=== PATIENT | female | born 1940 | race Caucasian/White ===

== ENCOUNTER 2016-12-06 13:58 | Emergency (ER) | payer MEDICARE ==
[2016-12-06 14:56] LABS: #Eosinphils 0.3 thou/uL (0.0-0.7); #Lymphocytes 2.4 thou/uL (1.20-3.40); #Monocytes 0.5 thou/uL (0.11-0.59); #Neutrophils 4.5 thou/uL (1.40-6.50); %Basophils 0.6 % (0.0-1.0); %Eosinophils 3.6 % (0.0-10.0); %Monocytes 6.4 % (0.0-10.0); Hematocrit 33.4 % (36.0-47.0); Mean Platelet Volume 8.2 fL (7.4-10.4); Red Blood Cell (RBC) Count 3.68 mill/uL (4.20-5.40); White Blood Cell (WBC) Count 7.8 thou/uL (4.8-10.8)
[2016-12-06 15:08] LABS: ALT (SGPT) 13 U/L (8-55); AST (SGOT) 17 U/L (5-34); Alkaline Phosphatase 64 U/L (40-150); Anion Gap 15 mmol/L (10-20); BUN (Urea Nitrogen) 24 mg/dL (9.8-20.1); Bilirubin, Total 1.4 mg/dL (0.2-1.2); Calc. Creatinine Clearance 0 mL/min (70-130); Calcium 9.3 mg/dL (7.8-10.44); Carbon Dioxide 26 mmol/L (23-31); Chloride 104 mmol/L (98-107); Estimated GFR-MDRD 50; Globulin 2.9 g/dL (2.4-3.5); Protein, Total 6.7 g/dL (6.0-8.3)
== END 2016-12-06 16:15 | disposition home or self-care (01) ==
LOC: SCSER 13:58
DX: K64.4 Residual hemorrhoidal skin tags (principal); G30.9 Alzheimer's disease, unspecified; F02.80 Dementia in other diseases classified elsewhere, unspecified severity, without behavioral disturbance, psychotic disturbance, mood disturbance, and anxiety; E78.5 Hyperlipidemia, unspecified; I10 Essential (primary) hypertension
CPT/HCPCS: 36415; 80053; 82274; 85025; 99283

== ENCOUNTER 2017-11-19 14:09 | Inpatient (IN) | payer MEDICARE ==
[2017-11-19 15:15] LABS: Bilirubin Negative (Negative); Blood, Urine Negative (Negative); Clarity Hazy (Clear); Glucose, Urine (Dipstick) Negative (Negative); Leukocyte Small (Negative); Nitrite Positive (Negative); Protein, Urine (Dipstick) Trace mg/dL (Neg-Trace); RBC/HPF None Seen HPF (0-3); Specific Gravity, Urine 1.025 (1.005-1.030); Urobilinogen 0.2 mg/dL (0.2-1.0)
[2017-11-19 15:15] LABS: ALT (SGPT) 8 U/L (8-55); AST (SGOT) 25 U/L (5-34); Albumin 3.6 g/dL (3.4-4.8); Alkaline Phosphatase 52 U/L (40-150); Anion Gap 14 mmol/L (10-20); BUN (Urea Nitrogen) 28 mg/dL (9.8-20.1); Bilirubin, Total 0.9 mg/dL (0.2-1.2); Calc. Creatinine Clearance 0 mL/min (70-130); Calcium 8.7 mg/dL (7.8-10.44); Carbon Dioxide 20 mmol/L (23-31); Chloride 107 mmol/L (98-107); Estimated GFR-MDRD 52; Globulin 2.5 g/dL (2.4-3.5); Glucose 105 mg/dL (83-110); Potassium 4.2 mmol/L (3.5-5.1); Protein, Total 6.1 g/dL (6.0-8.3); Sodium 137 mmol/L (136-145)
[2017-11-19 15:16] LABS: Bacteria/HPF 3+ HPF (None Seen)
[2017-11-19 15:21] LABS: Hemoglobin 4.5 g/dL (12.0-16.0); Mean Corpuscular HGB CONC 30.2 g/dL (32.0-36.0); Mean Corpuscular Hemoglobin 19.8 pg (27.0-31.0); Mean Corpuscular Volume 65.5 fL (78.0-98.0); Mean Platelet Volume 6.9 fL (7.4-10.4); Platelet Count 342 thou/uL (130-400); RBC Distribution Width 13.7 % (11.5-14.5); Red Blood Cell (RBC) Count 2.29 mill/uL (4.20-5.40)
[2017-11-19] MEDS ORDERED: cefTRIAXone\\ROCEPHIN 2 GM VIAL ONE (15:53)
[2017-11-19] MEDS ORDERED: Sodium Chloride 0.9% 100 ML ONE (15:53)
[2017-11-19 16:02] LABS: #Basophils 0.1 thou/uL (0.0-0.2); #Eosinphils 0.2 thou/uL (0.0-0.7); #Lymphocytes 2.3 thou/uL (1.20-3.40); #Monocytes 0.5 thou/uL (0.11-0.59); #Neutrophils 3.9 thou/uL (1.40-6.50); %Basophils 1.2 % (0.0-1.0); %Eosinophils 2.7 % (0.0-10.0); %Lymphocytes 32.6 % (21.0-51.0); %Monocytes 7.5 % (0.0-10.0)
[2017-11-19 16:06] LABS: MDiff Complete? YES
[2017-11-19 16:07] LABS: Anisocytosis SLIGHT = 6-15 cells (100X) (0-5/hpf); Band 1 % (5-11); Eosinophils 2 % (0-10); Lymphocytes 30 % (21-51); Microcytosis SLIGHT = 6-15 cells (100X) (0-5/hpf); Monocytes 7 % (0-10); Neutrophil 58 % (42-75)
[2017-11-19 16:08] LABS: Hypochromia SLIGHT = 6-15 cells (100X) (0-5/hpf); Ovalocytes SLIGHT = 2-5 cells (100X) (0-1/hpf); Stomatocytes SLIGHT = 2-5 cells (100X) (0-1/hpf)
[2017-11-19] MEDS ORDERED: Sodium Chloride 0.9% 1,000 ML IV SCH (18:00)
[2017-11-19] MEDS ORDERED: Prevnar 13-Val Conj/PF 0.5 ML SYRINGE IM ONE (18:45)
[2017-11-19] MEDS ORDERED: Acetaminophen 325 MG TAB PO PRN (20:23)
[2017-11-19] MEDS ORDERED: Calcium Carbonate 500 MG ChewTAB PO PRN (20:23)
[2017-11-19] MEDS ORDERED: Acetaminophen 650 MG Suppository PR PRN (20:23)
[2017-11-19] MEDS ORDERED: Labetalol HCl 100 MG/20 ML VIAL SLOW IVP PRN (20:29)
--- NOTE | 2017-11-19 20:36 | HP ---
DATE OF ADMISSION: 11/19/2017 PRIMARY CARE PHYSICIAN: Dr. Darnell. CHIEF COMPLAINT: Vomiting with increased urination. HISTORY OF PRESENT ILLNESS: The patient is a 77-year-old female who presented to the emergency room at [place] with above complaints. Patient is a poor historian and is not answering appropria tely at this time. Baseline mentation unknown. History obtained from the ER record. She is a very poor historian. No family at the bedside. Patient reported nausea, vomiting along with urinary rete ntion. Patient's reported that she has been vomiting after eating over the last few days. S he is also not urinating much. She has been getting weaker. No fever or chills were reported. Agai n, not much information is available from the patient due to current cognitive status. PAST MEDICAL HISTORY: 1. Hypertension. 2. Alzheimer dementia. 3. Severe anemia, requiring hospitalization in 07/2014. The patient had an EGD that showed Bishop ulcers x2 without any active bleeding. There was a large duodenal diverticulum with 7 cm hiatal charles ia. Colonoscopy showed sigmoid diverticulosis with single small erosion in the ascending colon which was biopsied. There were also small internal hemorrhoids. Her hemoglobin at discharge was 7.3 from 5.3 on admission. PAST SURGICAL HISTORY: 1. EGD and colonoscopy as discussed above. 2. Partial hysterectomy at age of 45. 3. Tonsillectomy at age of 6. ALLERGIES: No known drug allergies. CURRENT HOME MEDICATIONS: Unclear at this time. Based on recent Dr. Darnell's office record, she take s ferrous sulfate 325 mg daily, Lasix 40 mg twice a day, Colace as needed, metoprolol ER 100 mg daily , losartan 100 mg daily, potassium chloride 10 mEq daily, Protonix 40 mg at bedtime, pravastatin 40 m g daily, donepezil 10 mg daily. SOCIAL HISTORY: Patient currently lives at home with her . No current smoking. She is FULL CODE. Surrogate decision maker is probably the . No alcohol or drug use reported. FAMILY HISTORY: Positive for heart disease. Diabetes and hypertension runs in her family. Daughter had ovarian cancer. REVIEW OF SYSTEMS: Cannot be reliably obtained from the patient due to current cognitive status. PHYSICAL EXAMINATION: VITAL SIGNS: Temperature 97.4, respirations 17, pulse rate of 75, blood pressure of 116/51 with O2 s aturation 99% on room air. GENERAL: A 77-year-old female with confusion. Denies any complaints. HEENT: Head atraumatic, normocephalic. Sclerae are anicteric. Dry mucous membrane, no oral lesion. NECK: Supple, no JVD, no carotid bruit. LUNGS: Showed diminished air entry at bilateral bases. No rales, rhonchi, or wheezing appreciated. ABDOMEN: Soft, nontender, bowel sounds present. HEART: S1, S2 present. Regular rate and rhythm. No rubs or gallops appreciated, 2/6 systolic murmu r over the mitral area. EXTREMITIES: 1+ edema in bilateral lower extremities. No calf tenderness. SKIN: Warm and dry. LYMPH NODES: No palpable lymph nodes in the neck. PERIPHERAL VASCULAR: Radial pulses palpable bilaterally. MUSCULOSKELETAL: No joint swelling or tenderness. LABORATORY FINDINGS: CBC showed WBC of 7, hemoglobin 4.5, hematocrit 15, platelet count of 342. Lori hanna showed sodium 137, potassium 4.2, chloride 107, bicarbonate 20, BUN 28, creatinine 1.03. LFTs in normal range. Urinalysis showed 7-10 wbc's with 3+ bacteria. Stool for occult blood was positiv e. Medication administered in the emergency room 2 g ceftriaxone. Urine cultures have been sent. IMPRESSION: 1. Severe hypochromic microcytic anemia, suspected secondary to chronic gastrointestinal bleed. 2. Urinary tract infection. 3. Alzheimer's dementia with suspected toxic metabolic encephalopathy secondary to severe anemia and urinary tract infection. 4. Nausea, vomiting of unclear etiology. 5. Hypertension. 6. Hyperlipidemia. 7. Obesity with a BMI 31.2. 8. Chronic kidney disease, stage 3. PLAN: The patient will be monitored on the medical floor. Two units of PRBC will be transfused. We will start her on IV PPIs. We will keep her n.p.o. We will rule out iron deficiency. Consult GI. Gentle intravenous hydration. Monitor H and H closely. Her echocardiogram in the past have showed normal ejection fraction of 55%-60% with mild to moderate tricuspid regurgitation and grade I diastol ic dysfunction. Physical therapy, occupational therapy will be consulted. We will continue antibiot ics for urinary tract infection.
[2017-11-19 20:44] LABS: Reticulocyte Count 4.5 % (0.5-1.5)
[2017-11-19 21:12] LABS: Iron 9 ug/dL (50-170); Iron Binding Capacity, Total 398 mcg/dL (265-497)
[2017-11-19] MEDS: Metoprolol Tartrate 25 MG TAB PO SCH (21:45)
[2017-11-19] MEDS: Donepezil HCl 10 MG TAB PO SCH (21:48)
[2017-11-19] MEDS: Pantoprazole 40 MG VIAL IVP SCH (21:48)
[2017-11-19] MEDS: Dextrose 5 % And 0.9 % NaCl 1,000 ML IV SCH (21:48)
[2017-11-20] MEDS ORDERED: Haloperidol Lactate 5 MG/ML VIAL IM PRN (00:18)
[2017-11-20] MEDS ORDERED: Haloperidol Lactate 5 MG/ML VIAL IM SCH (00:30)
[2017-11-20] MEDS: Haloperidol Lactate 5 MG/ML VIAL SLOW IVP PRN ×2 (05:30→20:17)
[2017-11-20 06:47] LABS: #Basophils 0.1 thou/uL (0.0-0.2); #Eosinphils 0.3 thou/uL (0.0-0.7); #Lymphocytes 2.6 thou/uL (1.20-3.40); #Monocytes 0.6 thou/uL (0.11-0.59); #Neutrophils 4.4 thou/uL (1.40-6.50); %Basophils 0.9 % (0.0-1.0); %Eosinophils 3.5 % (0.0-10.0); %Lymphocytes 32.9 % (21.0-51.0); %Neutrophils 54.7 % (42.0-75.0); Hemoglobin 7.7 g/dL (12.0-16.0); Mean Corpuscular HGB CONC 31.7 g/dL (32.0-36.0); Mean Corpuscular Hemoglobin 23.8 pg (27.0-31.0); Mean Corpuscular Volume 75.1 fL (78.0-98.0); Mean Platelet Volume 8.2 fL (7.4-10.4); Platelet Count 415 thou/uL (130-400); RBC Distribution Width 19.1 % (11.5-14.5); Red Blood Cell (RBC) Count 3.25 mill/uL (4.20-5.40)
[2017-11-20 07:12] LABS: Anion Gap 12 mmol/L (10-20); BUN (Urea Nitrogen) 23 mg/dL (9.8-20.1); Calc. Creatinine Clearance 72 mL/min (70-130); Calcium 8.7 mg/dL (7.8-10.44); Carbon Dioxide 20 mmol/L (23-31); Chloride 108 mmol/L (98-107); Estimated GFR-MDRD 60; Glucose 97 mg/dL (83-110); Magnesium 2.3 mg/dL (1.6-2.6); Phosphorus 3.6 mg/dL (2.3-4.7); Potassium 3.6 mmol/L (3.5-5.1); Sodium 136 mmol/L (136-145)
[2017-11-20] MEDS: cefTRIAXone\\ROCEPHIN 1 GM in Sodium Chloride 0.9% 100 ML IVPB SCH (08:31)
[2017-11-20] MEDS: Metoprolol Tartrate 25 MG TAB PO SCH ×2 (08:38→20:22)
[2017-11-20] MEDS: Cyanocobalamin (Vitamin B-12) 1,000 MCG TAB PO SCH (08:38)
[2017-11-20] MEDS: Pantoprazole 40 MG VIAL IVP SCH ×2 (08:38→20:25)
[2017-11-20] MEDS ORDERED: Sodium Ferric Gluconate 250 MG in Sodium Chloride 0.9% 250 ML 250 ML IVPB SCH (09:00)
--- NOTE | 2017-11-20 11:25 | CON ---
DATE OF CONSULTATION: 11/20/2017 REQUESTING PHYSICIAN: Dr. Tang. REASON FOR CONSULTATION: Anemia and heme positive stool. HISTORY OF PRESENT ILLNESS: Chikis Nielson is a 77-year-old woman with a history significant for Alzhe austin dementia, which appears to be fairly advanced. She has had a partial hysterectomy and tonsillec baron, also carries a diagnosis of hypertension. I met her just over 3 years ago in hospital consulta tion for severe anemia with hemoglobin 7 at that time. She had an EGD and a colonoscopy in 07/2014. The EGD showed a large 7 cm hiatal hernia with a couple of clean based linear Bishop ulcers and a l arge duodenal diverticulum. The colonoscopy was significant only for sigmoid diverticulosis and ther e was a single small erosion in the ascending colon which I biopsied, and this came back as a likely artifactual, mild surface regenerative changes. I do not have much interval history on the patient. It appears that she takes oral iron 325 mg once daily in addition to other medications as listed, an d she is not on any blood thinners. She was admitted to the hospital last night, evidently with alte red mental status and some reports of nausea and vomiting. Her had evidently reported that s he has been vomiting after eating the past few days. I cannot get any more detailed history from the patient. Currently, she denies any abdominal pain. She denies any memory of recent vomiting. She says that her bowel movements are normal and that she has not had any overt bleeding from anywhere, t carlos I am not sure we can trust her memory of this. I do not have any other good sources of informa tion available. At any rate upon presentation, she was found to have severe anemia with hemoglobin 4 .5 and MCV down to 65.5. This is a significant change from 11/2016 one year ago, in which her hemogl obin was 11.1 with a normal MCV. The patient received 2 units RBC transfusion last night. Hemoglobi n came up nicely from 4.5-7.7. She has remained hemodynamically stable. REVIEW OF SYSTEMS: Unable to obtain reliable review of systems due to patient's altered mental statu s. PAST MEDICAL HISTORY: Hypertension; Alzheimer dementia; history of severe anemia, 2014; hiatal herni a with Bishop ulcer, 07/2014; duodenal diverticulum, 07/2014; EGD; sigmoid diverticulosis, 5; colonoscopy. ALLERGIES: No known drug allergies. HOME MEDICATIONS: Ferrous sulfate 325 mg daily, Lasix 40 mg twice daily, Colace as needed, metoprolo l 100 mg daily, losartan 100 mg daily, potassium chloride 10 mEq daily, Protonix 40 mg at bedtime, pr avastatin 40 mg daily, donepezil 10 mg daily. SOCIAL HISTORY: The patient evidently lives at home with her . No smoking, alcohol, or drug use reported. FAMILY HISTORY: Her daughter had ovarian cancer. PHYSICAL EXAMINATION: VITAL SIGNS: Temperature 97.6, pulse 73, blood pressure 163/63, 98% oxygen saturation on room air. GENERAL: A nontoxic 77-year-old woman lying in bed comfortably, pleasantly confused. MENTAL: She is pleasantly confused. She can give her name, but is not oriented to place or time. S he is not able to give any details of her history. SKIN: She is a bit pale, no jaundice, no rash visible or palpable. EYES: No scleral icterus. Extraocular movements intact. ENT: Mucous membranes moist, no oral lesions. LYMPH: No submandibular, supraclavicular lymphadenopathy. THYROID: Nontender to palpation. HEART: Regular rate and rhythm. LUNGS: Clear to auscultation bilaterally. ABDOMEN: Bowel sounds present, soft, nontender to palpation. EXTREMITIES: No peripheral edema. VESSELS: Radial pulses 2+ bilaterally. NEUROLOGICAL: Cranial nerves II-XII intact bilaterally. No focal deficits. LABORATORY STUDIES: Admission hemoglobin was 4.5, MCV 65.5 after 2 units RBC transfusion, hemoglobin is 7.7, WBC 8.0, platelets 415. Sodium 136, potassium 3.6, BUN 23, creatinine 0.90. LFTs all rohan l with total bilirubin 0.9, alkaline phosphatase 52, AST 25, ALT 8. Iron studies show iron deficienc y with ferritin 8.4, iron 9, TIBC 398, phosphorus is 3.6, magnesium 2.3. Vitamin B12 of 309. Folic acid 14. Urinalysis is suggestive of urinary tract infection with positive nitrites and 7-10 wbc's. ASSESSMENT AND PLAN: 1. Iron deficiency anemia. 2. Heme positive stool. 3. Hiatal hernia, with history of associated Bishop ulcer. 4. Alzheimer dementia. The patient underwent evaluation for similar presentation with severe anemia back in 2014 as detailed above. Notably, labs from just one year ago showed hemoglobin of 11.1, so anemia is now recurrent. If she is really taking oral iron as the records suggest, then her iron deficiency is refractory to oral iron therapy. I think it is most likely that the patient has continued slow bleeding from [place] on ulcerations or erosions. I do not think repeating colonoscopy is necessary at this point and I do think the patient would easily tolerate bowel prep. I do think it would be reasonable to repeat EGD this admission for reevaluation of her hiatal hernia and persistence of Bishop ulcers. We will pankaj n for EGD tomorrow. If the patient is found to have significant Bishop erosions, then I am not sure she is a greatest surgical candidate for a hiatal hernia surgery. May be that she would do better w ith periodic IV iron infusions and leave it at that. Thank you for the consultation. Please call any time with questions or concerns.
[2017-11-20] MEDS: Dextrose 5 % And 0.9 % NaCl 1,000 ML IV SCH ×2 (19:08→23:20)
[2017-11-20] MEDS: Donepezil HCl 10 MG TAB PO SCH (20:23)
--- NOTE | 2017-11-20 23:12 | PDOC.PN ---
- Subjective Encounter Start Date: 11/20/17 Encounter Start Time: 14:30 -: old records requested/rev Patient seen and examined for severe Anemia with Encephalopathy. Nausea improved. Mentation clearing. No new complaints. No overnight events - Objective Resuscitation Status: Resuscitation Status FULL:Full Resuscitation MAR Reviewed: Yes Vital Signs & Weight: Vital Signs (12 hours) Temp Pulse Resp BP Pulse Ox 11/20/17 20:29 97.4 F L 86 20 171/93 H 93 L 11/20/17 20:00 93 L Weight Admit Weight 198 lb Weight 198 lb I&O: 11/19/17 11/20/17 11/21/17 06:59 06:59 06:59 Intake Total 820 795 Balance 820 795 Result Diagrams: 11/20/17 06:32 11/20/17 06:32 Phys Exam - Physical Examination Constitutional: NAD HEENT: moist MMs Neck: no JVD Respiratory: no wheezing, no rales, no rhonchi Symmetrical Cardiovascular: RRR, no rub no heaves/pulsations Gastrointestinal: soft, non-tender, no distention, positive bowel sounds Musculoskeletal: no edema, pulses present Neurological: non-focal, moves all 4 limbs Psychiatric: normal affect Deviation from normal: mentation at baseline per daughter at bedside Dx/Plan - Plan plan discussed w/ family, DVT proph w/SCDs IMPRESSION: 1. Severe hypochromic microcytic anemia, suspected secondary to chronic gastrointestinal bleed. s/p 2 units PRBC 2. Urinary tract infection. 3. Alzheimer's dementia with suspected toxic metabolic encephalopathy secondary to severe anemia and urinary tract infection. 4. Nausea, vomiting of unclear etiology. 5. Hypertension. 6. Hyperlipidemia. 7. Obesity with a BMI 31.2. 8. Chronic kidney disease, stage 3. PLAN: Cont IV PPIs. EGD in AM Cont Atbx Await cultures Fall precautions HH in AM Fall precautions Cont current meds as below Microbiology 11/19/17 15:00 Stool - Pending Stool Occult Blood ([facility]) - Final 11/19/17 15:55 Venous blood - Left Arm Blood Culture - Preliminary Specimen has been received and culture in progress. No Growth to date. 11/19/17 15:11 Venous blood - Left Arm Blood Culture - Preliminary Specimen has been received and culture in progress. No Growth to date. 11/19/17 14:59 Urine Straight Catheter Urine Culture - Preliminary Escherichia coli Review of Systems - Review of Systems Respiratory: negative: Cough, Dry, Shortness of Breath, Hemoptysis, SOB with Excertion, Pleuritic Pain, Sputum, Wheezing Cardiovascular: negative: chest pain, palpitations, orthopnea, paroxysmal nocturnal dyspnea, edema, light headedness, other - Medications/Allergies Allergies/Adverse Reactions: Allergies Allergy/AdvReac Type Severity Reaction Status Date / Time poison rosey extract Allergy Mild Verified 07/19/14 20:21 poison oak extract Allergy Mild Verified 07/19/14 20:21 No Known Drug Allergies Allergy Verified 07/19/14 20:21 Medications: Current Medications Acetaminophen (Tylenol) 650 mg PO Q4H PRN PRN Reason: Headache/Fever/Mild Pain (1-3) Acetaminophen (Tylenol) 650 mg ID Q4H PRN PRN Reason: Headache/Fever/Mild Pain (1-3) Calcium Carbonate (Tums) 1,000 mg PO Q4H PRN PRN Reason: Heartburn or Indigestion Cyanocobalamin (Vitamin B-12) 1,000 mcg PO DAILY [facility] Last Admin: 11/20/17 08:38 Dose: 1,000 mcg Donepezil HCl (Aricept) 10 mg PO HS [facility] Last Admin: 11/20/17 20:23 Dose: 10 mg Haloperidol Lactate (Haldol) 1 mg IM Q4H PRN PRN Reason: Agitation Haloperidol Lactate (Haldol) 1 mg SLOW IVP Q4H PRN PRN Reason: Agitation Last Admin: 11/20/17 20:17 Dose: 1 mg Dextrose/Sodium Chloride (D5 0.9% Ns) 1,000 mls @ 50 mls/hr IV .Q20H [facility] Last Admin: 11/20/17 19:08 Dose: Not Given Ceftriaxone Sodium 1 gm/ (Sodium Chloride) 100 mls @ 200 mls/hr IVPB DAILY [facility] Last Admin: 11/20/17 08:31 Dose: 100 mls Labetalol HCl (Normodyne) 10 mg SLOW IVP Q4H PRN PRN Reason: Systolic BP > 180 Metoprolol Tartrate (Lopressor) 12.5 mg PO BID [facility] Last Admin: 11/20/17 20:22 Dose: 12.5 mg Pantoprazole Sodium (Protonix) 40 mg IVP Q12HR [facility] Last Admin: 11/20/17 20:25 Dose: 40 mg Sodium Chloride (Flush - Normal Saline) 10 ml IVF PRN PRN PRN Reason: Saline Flush
[2017-11-21] MEDS: Metoprolol Tartrate 25 MG TAB PO SCH ×2 (07:12→21:42)
[2017-11-21] MEDS: Pantoprazole 40 MG VIAL IVP SCH (08:24)
[2017-11-21] MEDS: cefTRIAXone\\ROCEPHIN 1 GM in Sodium Chloride 0.9% 100 ML IVPB SCH (08:24)
[2017-11-21] MEDS: Cyanocobalamin (Vitamin B-12) 1,000 MCG TAB PO SCH (08:24)
[2017-11-21] MEDS ORDERED: PROPOFOL 200 MG/20 ML VIAL ONE (10:12)
[2017-11-21 11:29] VITALS: BMI 30.3
--- NOTE | 2017-11-21 12:06 | OP ---
DATE OF PROCEDURE: 11/21/2017 PROCEDURE: Esophagogastroduodenoscopy with biopsy. PREOPERATIVE DIAGNOSIS: Severe iron deficiency anemia. PROCEDURE IN DETAIL: Informed consent was obtained from the patient. She was sedated with total int ravenous anesthesia. The bite block was placed and the endoscope was advanced easily to the second p ortion of the duodenum and retroflexion was performed in the stomach. The esophagus had erosive esop hagitis with an 8 mm ulcer at the GE junction. This was shallow and clean white base. The stomach h ad a large hiatal hernia. There was erosive gastritis with a couple of small 5 mm ulcers in the antr um of the stomach. Biopsies were obtained to rule out H. pylori. Retroflexed views in the stomach w ere otherwise unremarkable. The pylorus and first and second portions of the duodenum were normal. IMPRESSION: 1. Erosive esophagitis with an 8 mm ulceration at the gastroesophageal junction. This had a clean w chon base without stigmata of recent bleeding. 2. Large hiatal hernia. 3. Erosive gastritis with 5 mm ulcerations in the antrum of the stomach. Biopsies taken to rule out Helicobacter pylori. 4. Otherwise normal esophagogastroduodenoscopy. RECOMMENDATIONS: 1. Await histopathology. 2. Increase pantoprazole to 40 mg twice daily. 3. Consider iron IV. 4. I will sign off. Please call if GI can be of assistance.
[2017-11-21] MEDS: Dextrose 5 % And 0.9 % NaCl 1,000 ML IV SCH (12:22)
[2017-11-21 13:18] LABS: Hemoglobin 9.5 g/dL (12.0-16.0); Platelet Count 494 thou/uL (130-400)
--- NOTE | 2017-11-21 20:46 | PDOC.PN ---
- Subjective Encounter Start Date: 11/21/17 Encounter Start Time: 14:30 Patient seen and examined for Anemia. s/p EGD. No new complaints. No overnight events - Objective Resuscitation Status: Resuscitation Status FULL:Full Resuscitation MAR Reviewed: Yes Vital Signs & Weight: Vital Signs (12 hours) Temp Pulse Resp BP Pulse Ox 11/21/17 16:00 98.1 F 76 18 145/80 H 96 11/21/17 11:55 97.8 F 73 16 130/72 96 11/21/17 10:00 97.8 F 73 16 154/81 H 96 Weight Admit Weight 198 lb Weight 188 lb 1.6 oz I&O: 11/20/17 11/21/17 11/22/17 06:59 06:59 06:59 Intake Total 820 1495 980 Balance 820 1495 980 Result Diagrams: 11/21/17 13:10 11/20/17 06:32 Phys Exam - Physical Examination Constitutional: NAD Respiratory: no wheezing, no rhonchi Cardiovascular: RRR, no rub Gastrointestinal: soft, non-tender, positive bowel sounds Musculoskeletal: no edema Neurological: moves all 4 limbs Dx/Plan - Plan DVT proph w/SCDs IMPRESSION: 1. Severe hypochromic microcytic anemia, suspected secondary to chronic gastrointestinal bleed. s/p 2 units PRBC 2. E coli Urinary tract infection. 3. Alzheimer's dementia with suspected toxic metabolic encephalopathy secondary to severe anemia and urinary tract infection. 4. Nausea, vomiting of unclear etiology. 5. Hypertension. 6. Hyperlipidemia. 7. Obesity with a BMI 31.2. 8. Chronic kidney disease, stage 3. PLAN: Cont PPIs. Cont IV Atbx - change to PO at dc Cont current meds as below IV iron in AM - 1 dose (received 1 dose 11/20) Microbiology 11/19/17 14:59 Urine Straight Catheter Urine Culture - Final Escherichia coli Review of Systems - Review of Systems Respiratory: negative: Cough, Dry, Shortness of Breath, Hemoptysis, SOB with Excertion, Pleuritic Pain, Sputum, Wheezing Cardiovascular: negative: chest pain, palpitations, orthopnea, paroxysmal nocturnal dyspnea, edema, light headedness, other - Medications/Allergies Allergies/Adverse Reactions: Allergies Allergy/AdvReac Type Severity Reaction Status Date / Time poison rosey extract Allergy Mild Verified 07/19/14 20:21 poison oak extract Allergy Mild Verified 07/19/14 20:21 No Known Drug Allergies Allergy Verified 07/19/14 20:21 Medications: Current Medications Acetaminophen (Tylenol) 650 mg PO Q4H PRN PRN Reason: Headache/Fever/Mild Pain (1-3) Acetaminophen (Tylenol) 650 mg MN Q4H PRN PRN Reason: Headache/Fever/Mild Pain (1-3) Calcium Carbonate (Tums) 1,000 mg PO Q4H PRN PRN Reason: Heartburn or Indigestion Cyanocobalamin (Vitamin B-12) 1,000 mcg PO DAILY [facility] Last Admin: 11/21/17 08:24 Dose: 1,000 mcg Donepezil HCl (Aricept) 10 mg PO HS [facility] Last Admin: 11/20/17 20:23 Dose: 10 mg Dextrose/Sodium Chloride (D5 0.9% Ns) 1,000 mls @ 50 mls/hr IV .Q20H [facility] Last Admin: 11/21/17 12:22 Dose: Not Given Ceftriaxone Sodium 1 gm/ (Sodium Chloride) 100 mls @ 200 mls/hr IVPB DAILY [facility] Last Admin: 11/21/17 08:24 Dose: 100 mls Labetalol HCl (Normodyne) 10 mg SLOW IVP Q4H PRN PRN Reason: Systolic BP > 180 Metoprolol Tartrate (Lopressor) 12.5 mg PO BID [facility] Last Admin: 11/21/17 07:12 Dose: 12.5 mg Pantoprazole Sodium (Protonix) 40 mg PO BID [facility] Sodium Chloride (Flush - Normal Saline) 10 ml IVF PRN PRN PRN Reason: Saline Flush Last Admin: 11/21/17 08:24 Dose: 10 ml
[2017-11-21] MEDS: Donepezil HCl 10 MG TAB PO SCH (21:43)
[2017-11-22] MEDS: Metoprolol Tartrate 25 MG TAB PO SCH (07:49)
[2017-11-22] MEDS: Cyanocobalamin (Vitamin B-12) 1,000 MCG TAB PO SCH (07:49)
[2017-11-22] MEDS: cefTRIAXone\\ROCEPHIN 1 GM in Sodium Chloride 0.9% 100 ML IVPB SCH (07:50)
[2017-11-22] MEDS ORDERED: Iron Sucrose Complex 200 MG in Sodium Chloride 0.9% 250 ML 250 ML IVPB SCH (09:00)
[2017-11-22] MEDS: Sodium Ferric Gluconate 250 MG in Sodium Chloride 0.9% 250 ML 250 ML IVPB SCH (10:40)
--- NOTE | 2017-11-22 17:16 | PDOC.PN ---
- Subjective Encounter Start Date: 11/22/17 Encounter Start Time: 17:14 Ms. Nielson was seen today in follow-up of severe iron deficiency anemia. She has advanced dementia, and is unable to voice her concerns. she appears comfortable. Her , and daughter are at the bedside. - Objective Resuscitation Status: Resuscitation Status DNR:Do Not Resuscitate MAR Reviewed: Yes Vital Signs & Weight: Vital Signs (12 hours) Temp Pulse Resp BP Pulse Ox 11/22/17 16:00 98.2 F 100 17 162/98 H 95 11/22/17 11:45 97.5 F L 75 19 168/87 H 96 11/22/17 08:00 96 11/22/17 07:34 97.9 F 75 17 170/84 H 96 Weight Admit Weight 198 lb Weight 182 lb 3.2 oz I&O: 11/21/17 11/22/17 11/23/17 06:59 06:59 06:59 Intake Total 1495 980 Output Total 45 Balance 1495 980 -45 Result Diagrams: 11/21/17 13:10 11/20/17 06:32 Phys Exam - Physical Examination HEENT: PERRLA Respiratory: no wheezing, no rales, no rhonchi, clear to auscultation bilateral Cardiovascular: RRR, no significant murmur, no rub Gastrointestinal: soft, non-tender, no distention, positive bowel sounds Musculoskeletal: no edema Dx/Plan (1) Iron deficiency anemia due to chronic blood loss Code(s): D50.0 - IRON DEFICIENCY ANEMIA SECONDARY TO BLOOD LOSS (CHRONIC) Status: Chronic (2) Erosive gastritis Code(s): K29.60 - OTHER GASTRITIS WITHOUT BLEEDING Status: Chronic (3) UTI (urinary tract infection) Status: Acute (4) Hiatal hernia Code(s): K44.9 - DIAPHRAGMATIC HERNIA WITHOUT OBSTRUCTION OR GANGRENE Status: Chronic (5) Alzheimer's dementia Code(s): G30.9 - ALZHEIMER'S DISEASE, UNSPECIFIED; F02.80 - DEMENTIA IN OTH DISEASES CLASSD ELSWHR W/O BEHAVRL DISTURB Status: Chronic - Plan * Severe iron deficiency anemia- she had a dose of IV iron * Continue the PPI for the erosive gastritis * UTI- will change to an oral antibiotic * HTN - not well controlled- will re-start her home medications * Alzheimer's dementia- stable .
[2017-11-22] MEDS: Cefdinir 300 MG CAP PO SCH (20:13)
[2017-11-22] MEDS: Donepezil HCl 10 MG TAB PO SCH (20:13)
[2017-11-23] MEDS ORDERED: Ferrous Sulfate 325 MG TAB PO SCH (08:00)
[2017-11-23] MEDS: Cefdinir 300 MG CAP PO SCH (08:48)
[2017-11-23] MEDS: Cyanocobalamin (Vitamin B-12) 1,000 MCG TAB PO SCH (08:48)
[2017-11-23] MEDS ORDERED: Losartan 25 MG TAB PO SCH (09:00)
[2017-11-23] MEDS: Sodium Ferric Gluconate 250 MG in Sodium Chloride 0.9% 250 ML 250 ML IVPB SCH (09:33)
[2017-11-23 14:02] VITALS: BP 146/81; TEMP 97.1
--- NOTE | 2017-11-23 20:07 | DIS ---
DATE OF ADMISSION: 11/19/2017 DATE OF DISCHARGE: 11/23/2017 PRIMARY CARE PHYSICIAN: Nadege Darnell M.D. DISCHARGE DISPOSITION: Home. PRIMARY DISCHARGE DIAGNOSES: 1. Severe iron deficiency anemia. 2. Erosive gastritis. 3. Urinary tract infection. 4. Large hiatal hernia. 5. Alzheimer's disease. DISCHARGE MEDICATIONS: Include Omnicef 300 mg twice a day for 3 days, iron sulfate 325 mg daily, Pro tonix 40 mg at bedtime, Zoloft 25 mg daily, pravastatin 40 mg daily, potassium chloride 10 mEq twice a day, metoprolol succinate 100 mg at bedtime, losartan 100 mg daily, furosemide 40 mg twice daily, A ricept 40 mg at bedtime and docusate sodium 100 mg daily. PROCEDURES DONE DURING ADMISSION: The patient had an upper GI endoscopy showing erosive gastritis wi th an 8 mm ulcer at the GE junction which had a clean white base without stigmata of recent bleed. T here was a large hiatal hernia, some erosive gastritis with 5 mm ulcerations in the antrum of the sto mach and biopsies were taken. Otherwise normal. CODE STATUS: DNR. ALLERGIES: POISON SALAZAR EXTRACT and POISON OAK EXTRACT. HOSPITAL COURSE: Ms. Nielson is a pleasant 77-year-old female who has fairly advanced dementia. She l jenifer at home with her and he brought her in as she was having a lot of nausea and vomiting an d it appeared that she was retaining urine. When they came to the ER for evaluation, it was found th at her hemoglobin was dangerously low at 4.5, hematocrit was 15. Her iron level was very low, as wel l as less than or it was at 9 with a very low ferritin. She was transfused 2 units and Gastroenterol sarah was consulted. She does have a history of a large hiatal hernia with Bishop lesions in the past . It was suspected that this could possibly be due to her cause of her chronic blood loss anemia. H owever, we underwent endoscopy and was found to have some erosive gastritis. It was recommended that she increased her proton pump inhibitor to twice a day and it is possible that she is refractory to oral iron therapy and is recommended that she get IV iron on a regular basis. I explained this to th e patient's and daughter who were at the bedside. I recommended that they asked her primary care physician if this can be done via their office or if she needs to be referred to see a hematolog ist. She also had urinary tract infections. The culture grew E. coli which was sensitive to cephalo sporins and she will be discharged home on antibiotics for this. At the time of discharge, she was s table. Her discharging hemoglobin was 9.5 after 2 units and one IV iron infusion. She should follow up as previously mentioned.
== END 2017-11-23 14:29 | disposition home or self-care (01) | DRG 380 ==
LOC: SCSER 14:09 → T4-A 17:04
PROVIDERS: ADMIT Internal Medicine Infectious Disease; ATTEND Internal Medicine Infectious Disease
PROC: 30233N1 Transfusion of Nonautologous Red Blood Cells into Peripheral Vein, Percutaneous Approach (ICD-10-PCS; 2017-11-19)
PROC: 0DB78ZX Excision of Stomach, Pylorus, Via Natural or Artificial Opening Endoscopic, Diagnostic (ICD-10-PCS; principal; 2017-11-21)
DX: K22.10 Ulcer of esophagus without bleeding (principal); G92 Toxic encephalopathy; N39.0 Urinary tract infection, site not specified; I12.9 Hypertensive chronic kidney disease with stage 1 through stage 4 chronic kidney disease, or unspecified chronic kidney disease; N18.3 Chronic kidney disease, stage 3 (moderate); G30.9 Alzheimer's disease, unspecified; F02.80 Dementia in other diseases classified elsewhere, unspecified severity, without behavioral disturbance, psychotic disturbance, mood disturbance, and anxiety; R33.9 Retention of urine, unspecified; Z79.899 Other long term (current) drug therapy; Z68.31 Body mass index [BMI] 31.0-31.9, adult; E66.9 Obesity, unspecified; K29.60 Other gastritis without bleeding; Z66 Do not resuscitate; Z91.048 Other nonmedicinal substance allergy status; K44.9 Diaphragmatic hernia without obstruction or gangrene; D50.0 Iron deficiency anemia secondary to blood loss (chronic); B96.20 Unspecified Escherichia coli [E. coli] as the cause of diseases classified elsewhere; E78.5 Hyperlipidemia, unspecified
CPT/HCPCS: 36415; 36430; 51701; 80048; 80053; 81003; 81015; 82274; 82607; 82728; 82746; 83540; 83550; 83735; 84100; 85014; 85018; 85025; 85046; 85049; 85060; 86850; 86900; 86901; 87040; 87077; 87086; 87186; 88305; 88312; 96365; A4353; C9113; G8978-GP-CM; G8979-GP-CK; G8987-GO-CK; G8988-GO-CI; J0696; J1630; J2704; J2916; J7050; P9016